=== PATIENT | male | born 2005 | race African-American/Black ===

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

== ENCOUNTER 2023-11-19 22:42 | Emergency (ER) | payer SELFPAY ==
[2023-11-19 23:35] LABS: Influenza A by NAA Not Detected (NotDetected); Influenza B by NAA Not Detected (NotDetected); SARS-CoV-2 NAA Rapid Test DETECTED (NotDetected)
== END 2023-11-20 00:22 | disposition home or self-care (01) ==
LOC: ERS 22:42
DX: U07.1 COVID-19 (principal)
CPT/HCPCS: 99283